=== PATIENT | female | born 1990 | race Caucasian/White ===

== ENCOUNTER → 2017-06-12 | Outpatient (CLI) | payer BC | END | disposition home or self-care (01) | LOC: KCIC MRI 13:04 | DX: M54.5 Low back pain (principal); R07.9 Chest pain, unspecified | CPT/HCPCS: 72148 ==

== ENCOUNTER → 2017-08-19 | Outpatient (CLI) | payer BC | END | disposition home or self-care (01) | LOC: KCIC MRI 08:29 | DX: M25.551 Pain in right hip (principal) | CPT/HCPCS: 73721 ==